=== PATIENT | female | born 1995 | race Two or more races ===

== ENCOUNTER 2024-12-22 14:35 | Emergency (ER) | payer OTHER ==
[~2024-12-22] VITALS: Ht 167.6 cm; Wt 56.7 kg
[2024-12-22 15:26] VITALS: BP 107/67; O2SAT 100
[2024-12-22] MEDS ORDERED: BARIUM SULFATE 450 ML ORAL.SUSP PO ONE (16:45)
[2024-12-22 17:03] LABS: BASO % 0.5 % (0.1-1.2); EOS # 0.38 (0.04-0.54); EOS % 5.0 % (0.7-7.0); LYMPH # 2.34 (1.18-3.74); LYMPH % 30.7 % (19.3-53.1); MEAN PLATELET VOLUME 11.20 fl (9.4-12.4); MONO # 0.43 (0.24-0.82); MONO % 5.6 % (4.7-12.5); NEUT # 4.42 (1.56-6.13); NEUT % 58.1 % (34.0-71.1); RED CELL DISTRIBUTION WIDTH 12.1 % (11.6-14.4)
[2024-12-22 17:23] LABS: INR 1.06
[2024-12-22 17:30] LABS: ALT/SGPT 13.0 U/L (12-78); AST/SGOT 10.0 U/L (15-37); BILIRUBIN TOTAL 0.45 mg/dL (0.3-1.2); BUN CREA RATIO 14.0 (7.0-25.0); CREATININE SERUM 0.87 mg/dL (0.55-1.02); GFR 78.1; GLOBULINA 3.8 G/DL (2.4-3.5); GLUCOSE FASTING 95.0 mg/dL (65-100); OSMOLALITY SERUM 283.0 MOSM/KG (275-295)
== END 2024-12-22 21:27 | disposition home or self-care (01) ==
LOC: ER 14:35
PROVIDERS: General Practice
DX: K42.9 Umbilical hernia without obstruction or gangrene (principal); R10.9 Unspecified abdominal pain
CPT/HCPCS: 36415; 74177; Q9965